=== PATIENT | male | born 1965 | race Caucasian/White ===

== ENCOUNTER 2020-06-02 16:50 | Emergency (ER) | payer OTHER, SELFPAY ==
[2020-06-02] VITALS (14 sets, daily range): BP systolic 128–145; BP diastolic 63–90; PULSE 80–103; RESP 16–18; TEMP 36.6; O2SAT 96–99
--- NOTE | 2020-06-02 16:53 | ED.GENADUL_ITS ---
Discharge Plan Disposition Patient Disposition: HOME Condition: Good Discharge Details Clinical Impression: Lymphadenopathy, mesenteric, Hematuria Primary Care Provider: Marychuy Rebolledo ED Provider: Tatyana Dumont Home Meds and New Rx's Prescriptions: No Action No Known Home Meds RF: 0 Discharge Instructions Instructions: Hematuria (ED) Additional Instructions: Has new symptoms are improving and sound to be consistent with your previous kidney stones, you likely passed her kidney stone already as this was not visualized on your CT. However, this may be the source of your blood in your urine. I would like for you to follow-up with your primary care and discuss the blood in your urine as well as the enlarged lymph nodes noted on your CT scan. If you develop fever/chills, abdominal pain, nausea, vomiting or other new/worsening symptom please seek care urgently once again. Otherwise, please follow-up with your primary care. Referrals: Marychuy Rebolledo [Primary Care Provider] - Discharge Data Discharge Date/Time-TO BE ENTERED AT DEPARTURE: 06/02/20 19:44 Medical Decision Making Patient is a pleasant 34-year-old male presented with chief complaint of bilateral flank pain. Are contacted by his primary care who evaluated this afternoon and recommended that he come in for evaluation. Patient reports that he has a history of kidney stones and this feels the same as it did then. Reports that he began having right-sided flank pain suddenly on Monday. Reports that over the weekend, he was unable to get out of bed secondary to his back pain. Denies any fevers or chills. States that he has been having change in his stream of urination but denies any dysuria, increased frequency urgency. Feels that the stream may be lower than typical. Urine was dipped by primary care who noted RBCs but no evidence of infection. He states that suddenly yesterday, his pain began to dissipate. He is wondering if the stone may have passed into his bladder. However, he continues to endorse some right-sided flank pain that is now decreased to a 4 out of 10. He denies any change in bowel habits. He denies any testicular pain. Denies any penile pain or discharge. No previous abdominal surgeries. He has not needed surgical excision of his stones historically and was able to pass these naturally. Patient reports he has been drinking large amounts of water and cranberry juice. On exam, patient appears nontoxic. He is tachycardic at 103. Afebrile. Abdomen is benign. No CVA tenderness. Pain seems to be more over the SI joints in his back. Pain is elicited with movements and palpation over this area. Not appreciate any muscle spasm. He has no midline tenderness. Labs reviewed. No leukocytosis, stable H&H. Sodium slightly low at 131, potassium 3.4, chloride 96. Patient's BUN is elevated 19 mild anion gap 12.4. Patient is receiving IV fluids. Urine shows large amounts of blood. No evidence of infection. CT reviewed by radiologist: FINDINGS: Liver: There is fatty infiltration of the liver. Gallbladder and bile ducts: Unremarkable. No biliary dilation. Pancreas: Unremarkable. Spleen: Unremarkable. Adrenals: Unremarkable. Kidneys and ureters: No hydronephrosis. No definite renal calculi. There is left renal cortical scarring. Stomach and bowel: No bowel obstruction. No evidence of acute diverticulitis. Appendix: No evidence of appendicitis. Intraperitoneal space: No free air. No significant fluid collection. Vasculature: No aortic aneurysm. Lymph nodes: There is fat stranding in the central mesentery with mildly enlarged lymph nodes measuring up to 1.0 x 1.7 cm. Bladder: No bladder calculus. Reproductive: Prostate size is borderline. Bones/joints: No acute fracture. No destructive bone lesion. There are multilevel degenerative changes in the spine. Soft tissues: There is a small, fat-containing umbilical hernia. Mild fat stranding within the hernia sac. IMPRESSION: 1. No evidence of obstructive uropathy. 2. Hepatic steatosis. 3. Mild nonspecific mesenteric adenopathy. 4. Small, fat-containing umbilical hernia. Mild fat stranding in the hernia sac suggesting inflammation. Patient is describing essential resolution of the initial flank pain that had been reported to feel like a kidney stone. Passage of stone may account for the patient continuing to have RBCs in the UA. Inflammation in the hernia sac does not correlate clinically. I did discuss the mesenteric adenopathy with the patient. He is now reporting that he had diarrhea over the weekend which is since resolved. He reports that this has occurred when he had his kidney stones historically. He states that overall his symptoms have greatly improved over the past 24 to 48 hours. Advised he should discuss his adenopathy further with his primary care but as he is not having any abdominal pain and is continuing to improve over the course of several days, I do not feel that further evaluation for this is required in the emergency department. Patient I discussed this at length. He was given return precautions. Will follow up with his primary care. All his questions concerns were addressed and is agreement this plan. HPI General Mode of arrival: ambulatory . Date/Time Provider Initiated Documentation: 06/02/20 16:53 . Limitations to Documentation: no limitations . Information obtained by: patient, RN/MD (contacted by PCP) and RN notes reviewed . History of Present Illness 54 [facility] the chief complaint of lower back pain, described as moderate and similar to prior episodes (reports feels similar to when he has had kidney stones in past), with intensity rated at 4. Quality is described as aching, and is localized to the back. Patient reports no radiation. Patient started experiencing this day(s) and it has been constant (improving). Medication improves symptom(s), (ASA) No exacerbating factors reported . Patient notes malaise; denies chest pain, cough, fever/chills, loss of appetite, nausea/vomiting, rash and shortness of breath. Patient did receive the following treatments prior to arrival, Aspirin Related Data Home Medications Medication Instructions Recorded Confirmed Unknown [No Known Home Meds] 06/02/20 06/02/20 Allergies Allergy/AdvReac Type Severity Reaction Status Date / Time codeine Allergy Other (See Unverified 06/02/20 17:10 Comment) Review of Systems Constitutional Constitutional: Reports as per HPI, Denies chills, Denies fever(s) and Denies poor appetite Cardiovascular Cardiovascular: Denies chest pain Respiratory Respiratory: Denies cough Gastrointestinal Gastrointestinal: Denies abdominal pain, Denies change in bowel habits, Denies nausea and Denies vomiting Genitourinary Genitourinary: Reports as per HPI Musculoskeletal Musculoskeletal: Reports as per HPI and Denies back pain Integumentary/Breasts Skin/Breast: Reports as per HPI and Denies rash PFSH Social History Smoking/Tobacco Use Status: Former Tobacco Use Alcohol Intake: never Drug use: Daily Substance use type: marijuana Do you feel safe at home: Yes Do you feel safe in your relationship?: Yes Exam Const General: cooperative, healthy appearing, comfortable, no acute distress, well developed and well groomed Nutritional Appearance: well nourished and overweight Orientation: alert and awake Resp Effort & Inspection: normal respiratory effort and no respiratory distress Auscultation: clear to auscultation bilaterally, no rales, no rhonchi and no wheezes Cardio Rate: regular rate Rhythm: regular rhythm Heart Sounds: S1 normal and S2 normal GI Inspection: normal to inspection Palpation: soft, no hepatosplenomegaly, not firm, no guarding, not rigid and nontender Back/Spine/Pelvis Back: no CVA tenderness Thoracic/Lumbar Spine: thoracic and lumbar spine normal to inspection, thoraco- lumbar ROM limited (pain with rotational movements, pain over bilateral SI joints), No thoraco-lumbar spasm, No thoracic spinal tenderness and No lumbar spinal tenderness Skin General skin exam: no rashes or lesions noted Trauma: no lacerations or abrasions Neuro General: patient alert and patient awake Cognition: normal cognition Speech: speech normal Gait: normal gait Psych Appearance: grossly normal and well kempt Mental Status: mental status grossly normal Speech and Movement: speech and movement normal
[2020-06-02 17:29] LABS: Abs Immature Grans 0.02 10^3/uL (0.0-0.06); Absolute Basophil Count 0.04 10^3/uL (0.0-0.2); Absolute Eosinophil Count 0.08 10^3/uL (0.0-0.7); Absolute Lymphocyte Count 2.59 10^3/uL (1.2-3.4); Absolute Monocyte Count 1.06 10^3/uL (0.1-0.8); Absolute Neutrophil Count 2.94 10^3/uL (1.2-6.7); Basophils % 0.6; Eosinophils % 1.2; HCT 42.6 % (40.0-50.0); HGB 14.9 g/dL (13.5-17.5); Immature Grans % 0.3; Lymphocytes % 38.5; MCH 29.7 pg (27.0-33.0); MPV 8.3 fL (8.0-11.0); Monocytes % 15.8; Neutrophils % 43.6; Nucleated RBC 0 %; Platelet Count 278 10^3/uL (130-400); RBC 5.01 10^6/uL (4.36-5.78); RDW 12.7 % (11.8-14.1); RDW-SD 39.2 fL; WBC 6.73 10^3/uL (4.4-10.8)
[2020-06-02 17:41] LABS: ALT 41 U/L (16-63); AST 28 U/L (15-37); Albumin 3.6 g/dL (3.4-5.0); Alkaline Phosphatase 50 U/L (46-116); Anion Gap 12.4 mmol/L (3-11); BUN 19 mg/dL (7-18); Bilirubin, Total 0.3 mg/dL (0.2-1.0); CO2 22.6 mmol/L (21.0-32.0); CREATININE 0.87 mg/dL (0.70-1.30); Calcium 8.8 mg/dL (8.5-10.1); Chloride 96 mmol/L (98-107); Glucose 113 mg/dL (74-106); Potassium 3.4 mmol/L (3.5-5.1); Sodium 131 mmol/L (136-145); Total Protein 7.8 g/dL (6.4-8.2)
[2020-06-02 17:47] LABS: Bilirubin Negative (Negative); Blood Large (Negative); Clarity Clear (Clear); Glucose Negative (Negative); Ketones Negative (Negative); Leukocyte Esterase Negative (Negative); Nitrite Negative (Negative); Urobilinogen 0.2 EU/dL (Up TO 0.2); pH 6.5 (5-8)
[2020-06-02 18:02] LABS: Bacteria Negative HPF (Negative); C & S Indicated? No; Casts Negative LPF (Negative); Crystals Negative HPF (Negative); Epithelial Cells Negative HPF (Negative); Mucus Negative (Negative); Other Cells Negative (Negative); RBC 20-50 HPF (0-2); WBC 0-2 HPF (0-5)
--- NOTE | 2020-06-02 18:17 | DI.CT_ITS ---
EXAM: CT RENAL COLIC WO CLINICAL HISTORY: right flank pain, hematuria TECHNIQUE: COMPARISON: No exams were available for comparison FINDINGS: CT examination of the abdomen and pelvis was performed without contrast administration. Images obtai pennie through the lung bases are unremarkable. The liver appears of decreased attenuation consistent w ith hepatic steatosis. Gallbladder and bile ducts are unremarkable by CT criteria. Pancreas appears normal. Spleen appears normal. Adrenals appear normal bilaterally. Kidneys appear normal with no evidence of renal mass, hydronephro sis, or nephrolithiasis. Urinary bladder unremarkable by noncontrast criteria. There is slight prominence of mesenteric lymph nodes which is a nonspecific finding. Question minima l mesenteric edema, this could represent inflammation. No bulky adenopathy seen. Abdominal aorta is of normal diameter and no major vascular abnormality is seen. Appendix is normal. No evidence diverticulitis or bowel obstruction. Small fat containing umbilical hernia noted. Impression: No evidence of urinary tract calcification or obstruction. Mild prominence of mesenteric lymph nodes and slight mesenteric edema could represent inflammation. RADIATION DOSE DELIVERED: 797mGy.cm Total DLP 797mGy.cm Total DLP DATA REPOSITORY: All CT scans at this facility are submitted to the National Radiology Data Registry (NRDR) Dose Index Registry (DIR) with the [employer] (A[employer]). RADIATION OPTIMIZATION: All CT scans at this facility use at least one of these dose optimization te chniques: automated exposure control; mA and/or kV adjustment per patient size (includes targeted exa ms where dose is matched to clinical indication); or iterative reconstruction.
[2020-06-02] MEDS: Lactated Ringers 1,000 ML 1000 ML IV (18:25)
--- NOTE | 2020-06-02 18:43 | DI.VRAD_ITS ---
PROCEDURE INFORMATION: Exam: CT Abdomen And Pelvis Without Contrast Exam date and time: 06/02/2020 6:12 PM Age: 54 years old Clinical indication: Other: Right flank pain, hematuria TECHNIQUE: Imaging protocol: Computed tomography of the abdomen and pelvis without contrast. Radiation optimization: All CT scans at this facility use at least one of these dose optimization techniques: automated exposure control; mA and/or kV adjustment per patient size (includes targeted exams where dose is matched to clinical indication); or iterative reconstruction. COMPARISON: No relevant prior studies available. FINDINGS: Liver: There is fatty infiltration of the liver. Gallbladder and bile ducts: Unremarkable. No biliary dilation. Pancreas: Unremarkable. Spleen: Unremarkable. Adrenals: Unremarkable. Kidneys and ureters: No hydronephrosis. No definite renal calculi. There is left renal cortical scarring. Stomach and bowel: No bowel obstruction. No evidence of acute diverticulitis. Appendix: No evidence of appendicitis. Intraperitoneal space: No free air. No significant fluid collection. Vasculature: No aortic aneurysm. Lymph nodes: There is fat stranding in the central mesentery with mildly enlarged lymph nodes measuring up to 1.0 x 1.7 cm. Bladder: No bladder calculus. Reproductive: Prostate size is borderline. Bones/joints: No acute fracture. No destructive bone lesion. There are multilevel degenerative changes in the spine. Soft tissues: There is a small, fat-containing umbilical hernia. Mild fat stranding within the hernia sac. IMPRESSION: 1. No evidence of obstructive uropathy. 2. Hepatic steatosis. 3. Mild nonspecific mesenteric adenopathy. 4. Small, fat-containing umbilical hernia. Mild fat stranding in the hernia sac suggesting inflammation. Dictated and Authenticated by: Jay Osei MD. Ordering:NIKHIL Joe MD
== END 2020-06-02 19:44 | disposition home or self-care (01) ==
PROVIDERS: Emergency Provider Physician Assistant; PCP Physician Assistant Medical
DX: R59.0 Localized enlarged lymph nodes (principal); R31.0 Gross hematuria; M54.5 Low back pain; Z87.442 Personal history of urinary calculi
CPT/HCPCS: 36415; 80053; 96360; 99284; 74176; 81003; 81015; 85025

== ENCOUNTER 2022-01-05 01:28 | Outpatient (CLI) | payer OTHER, SELFPAY ==
--- NOTE | 2022-01-05 14:51 | DI.US_ITS ---
APPROVED REPORT EXAM: Comprehensive 2D, Doppler, and color-flow Echocardiogram Patient Location: Out-Patient Costumer Assistant: Aurea Henderson RDCS (AE) Indications: Abnormal EKG Other Information Study Quality: Adequate Conclusion Normal left ventricular wall thickness and chamber size. Estimated ejection fraction is 60%. Wall m otion is normal Normal right ventricular size and systolic function Both atria are normal in size There is no structural or hemodynamically significant valvular disease Estimated right ventricular systolic pressure is 33 mmHg Wall motion Left Ventricle The left ventricle is normal size. The left ventricular systolic function is normal. The left ventric ular ejection fraction is within the normal range. There is normal left ventricular wall thickness. T here is normal LV segmental wall motion. There is no ventricular septal defect visualized. LVEF is 60 %. Right Ventricle The right ventricle is normal size. The right ventricular systolic function is normal. The RVSP is 33 .8mmHg. Atria The left atrium size is normal. The right atrium size is normal. The interatrial septum is intact wit h no evidence for an atrial septal defect. Aortic Valve The aortic valve is normal in structure. Aortic valve is trileaflet. There is no aortic valvular sten osis. No aortic regurgitation is present. Mitral Valve The mitral valve is normal in structure. No evidence of mitral valve stenosis. Trace mitral regurgita tion. Tricuspid Valve The tricuspid valve is normal in structure. There is no tricuspid valve stenosis. Mild tricuspid regu rgitation. Pulmonic Valve Pulmonic valve is not well visualized. There is no pulmonic valvular stenosis. There is no pulmonic v alvular regurgitation. Great Vessels The aortic root is normal in size. The ascending aorta is normal in size. Aortic arch is normal in ca liber. IVC is normal in size and collapses >50% with inspiration. Pericardium There is no pericardial effusion. 2D Dimensions IVSD d PLAX 0.86 cm M: 0.6-1.2 LV Vol A2C d MOD 110.0 mL LVPW d PLAX 0.95 cm M: 0.6 - 1.2 LV Vol A4C d MOD 117.1 mL LVID d PLAX 4.21 cm M: 4.2 - 5.8 LA vol/ BSA A2C s A-L 22.0 mL/m2 LVDs 2.95 cm M: 2.5 - 4.0 LA vol/ BSA A4C s A-L 22.7 mL/m2 Ao Root d 2.90 cm M: 3.1 - 3.7 LA Vol/ BSA Biplane s A-L 24.1 mL/m2 RA Area A4C 13.48 cm2 LA Area A4C s MOD 16.43 cm2 RA Vol/ BSA A4C s A-L 16.0 mL/m2 LA Area A2C s MOD 14.96 cm2 Ao Asc Diam d 3.18 cm M: 2.6 - 3.4 LV EF A4C MOD 63.4 % LV EF Teichholz 56.4 % LV EF A2C MOD 58.8 % LVEF (Ingram's) 60.86 % M: 52 - 72 LV EF Biplane MOD 60.9 % LV Volume 85.89 mL M: 62 - 150 SV 68.90 mL LV Volume Index 44.50 mL/m2 M: 34 - 74 SV Index 35.64 mL/m2 LV Vol Biplane MOD 113.2 mL FS 29.20 % M-Mode TAPSE 2.42 cm (M/F) >1.7 LV Diastology MV E' medial 0.116 (>0.07 m/s) E/A Ratio 1.2 LV E/e MED 7.60 (<14) MV E Vmax 0.88 (0.4-1.3 m/s) MV E' lateral 0.133 (>0.1 m/s) MV A Vmax 0.75 (0.4-1.3 m/s) LV E/e LAT 6.60 (<14) MV E/A Ratio 1.16 MV E/E' medial 7.61 MV E/E' lateral 6.64 Aortic Valve LVOT Area 2.92 cm2 AoV Area Vmax 2.70 cm2 LVOT Vmax 1.46 m/s AoV Area/ BSA (Vmax) 1.40 cm2/m2 LVOT Mean Satish. 0.86 m/s NOEMY Mean Satish. 2.34 cm2 LVOT Peak Grad 8.5 mmHg NOEMY Mean Satish. Index 1.21 cm2/m2 LVOT Mean Grad 3.7 mmHg LVOT VTI 0.309 m LVOT Diam s 1.90 cm AoV Vmax 1.57 m/s Velocity Ratio 0.92 AoV Mean Satish. 1.07 m/s AoV Peak Grad 9.9 mmHg LVOT SV 90.10 mL AoV Mean Grad 5.2 mmHg AoV VTI 0.321 m AoV Area VTI 2.81 cm2 AoV Area/ BSA (VTI) 1.45 cm/m2 Mitral Valve MV DT 232 (160-240 msec) MV PHT 67 msec MV Area PHT 3.27 cm2 MV VTI 0.387 m MV Area VTI 2.33 (4.0-6.0 cm2) Pulmonary Valve PV Vmax 1.08 (0.5-1.5 m/s) RVOT Peak Gr. 2.52 mmHg PV Peak Grad 4.6 mmHg RVOT Mean Gr. 1.20 mmHg PV Mean Grad 2.4 mmHg RVOT VTI 0.158 m PV VTI 0.250 m RVOT Vmax 0.79 m/s Tricuspid Valve TR Peak Grad 30.7 mmHg TR Vmax 2.77 m/s RA Pressure 3.00 mmHg RVSP (TR) 33.8 mmHg
== END 2022-01-05 01:48 ==
PROVIDERS: PCP Physician Assistant Medical; Visit Provider Physician Assistant Medical
DX: R94.31 Abnormal electrocardiogram [ECG] [EKG] (principal)
CPT/HCPCS: 93306

== ENCOUNTER → 2022-01-25 00:32 | Outpatient (CLI) | payer OTHER, MEDICAID, SELFPAY ==
[2022-01-25 13:35] LABS: Anion Gap 5.5 mmol/L (3-11); BUN 12 mg/dL (7-18); CO2 26.5 mmol/L (21.0-32.0); CREATININE 0.9 mg/dL (0.70-1.30); Calcium 8.5 mg/dL (8.5-10.1); Chloride 100 mmol/L (98-107); Glucose 106 mg/dL (74-106); Potassium 3.9 mmol/L (3.5-5.1); Sodium 132 mmol/L (136-145)
[2022-01-25] MEDS: Normal Saline Flush 10 ML SYR IVP (13:39)
[2022-01-25] MEDS: Gadoterate meglumine 20 ML VIAL 17 ML IVP (13:40)
--- NOTE | 2022-01-25 13:45 | DI.MRI_ITS ---
Exam(s) MR BRAIN WO/W EXAM: MR BRAIN WO/W CLINICAL HISTORY: POOR SHORT-TERM MEMORY, R41.3 TECHNIQUE: Multiplanar multisequence MRI of the brain was performed. Both noninfused and contrast i nfused sequences were performed. IV Contrast injected was 17 cc Dotarem. COMPARISON: No exams were available for comparison FINDINGS: CEREBRAL PARENCHYMA: No evidence of intracranial hemorrhage, mass effect nor shift of midline structu re. No extraaxial fluid collections. Ventricles are not enlarged nor shifted. There is no significant focal signal abnormality in the cerebellar hemispheres nor within the yamileth, m idbrain, and thalami. There is no abnormal signal abnormality in the periventricular white matter. There are no ring enhancing lesions in the brain. There is no abnormal meningeal enhancement. DWI: No evidence of restricted diffusion to suggest recent ischemic event. SWI: No evidence of microhemorrhages. PITUITARY GLAND: No mass nor parasellar abnormality. No obvious abnormality in the cavernous sinuses. FLOW VOIDS: The expected flow void are noted. No evidence of obvious aneurysm nor obvious vascular ma lformation. PARANASAL SINUSES: The visualized paranasal sinuses appear unremarkable. ORBITS: No obvious abnormal findings. IMPRESSION: 1. No significant intracranial findings on this MRI scan of the brain. 2. No abnormal enhancing intracranial finding. 3. The amount of involutional changes consistent with this patient's age. No evidence of prominent atrophy. DATA REPOSITORY:
== END ==
PROVIDERS: PCP Physician Assistant Medical; Visit Provider Physician Assistant Medical
DX: R41.3 Other amnesia (principal); R53.83 Other fatigue; R06.09 Other forms of dyspnea; R45.4 Irritability and anger
CPT/HCPCS: 70553; 80048